=== PATIENT | female | born 1940 | race Caucasian/White ===

== ENCOUNTER → 2019-01-19 09:34 | Outpatient (CLI) | payer OTHER, SELFPAY ==
[2019-01-19 09:52] LABS: RBC Urine None Seen (0-5/HPF)
[2019-01-19 11:09] LABS: Add Manual Diff / Slide Review NO; Basophils Absolute Auto 100 /uL (0-100); Basophils Percent Auto 0.9 % (0-2); Eosinophils Absolute Auto 400 /uL (0-450); Eosinophils Percent Auto 5.7 % (2-4); Hematocrit 38.3 % (36-46); Hemoglobin 13.4 g/dL (12.0-16.0); Lymphocytes Absolute Auto 1800 /uL (1100-4500); Lymphocytes Percent Auto 25.7 % (25-40); Mean Corpuscular Hemoglobin 30.9 PG (26-34); Mean Corpuscular Volume 88.4 fL (80-100); Monocytes Absolute Auto 800 /uL (0-900); Monocytes Percent Auto 11.2 % (3-14); Neutrophils Absolute Auto 4000 /uL (1500-7000); Neutrophils Percent Auto 56.5 % (50-75); Platelet Count 264 X10^3/uL (150-400); Red Blood Cell Count 4.33 X10^6/uL (4.0-5.2); Red Cell Distribution Width 13.7 % (11.6-14.8); White Blood Cell Count 7.2 X10^3/uL (4.5-11.0)
[2019-01-19 11:44] LABS: BUN Creatinine Ratio 17.8 (6-22); Blood Urea Nitrogen 16 mg/dL (7-17); Calcium 10.2 mg/dL (8.4-10.2); Carbon Dioxide 29 mmol/L (22-32); Chloride 105 mmol/L (98-107); Estimated Glomerular Filt Rate > 60.0 mL/min (>60); Glucose 77 mg/dL (80-110); HEMOLYSIS < 15 (0-50); Sodium 141 mmol/L (137-145)
[2019-01-19 11:45] LABS: Potassium 5.4 mmol/L (3.4-5.1)
[2019-01-19 12:00] LABS: Appearance Urine UA CLEAR; Bilirubin Urine UA NEGATIVE (NEGATIVE); Color Urine UA YELLOW; Glucose Urine UA NEGATIVE (Negative); Ketones Urine UA NEGATIVE (NEGATIVE); Leukocyte Esterase Urine UA 2+ (NEGATIVE); Nitrite Urine UA NEGATIVE (Negative); Occult Blood Urine UA NEGATIVE (Negative); Protein Urine UA NEGATIVE (Negative); Specific Gravity Urine UA <=1.005 (1.000-1.035); Urobilinogen Urine UA 0.2 E.U./dL (0.2)
[2019-01-19 12:24] LABS: Bacteria Urine Few (2-10); Culture Indicated Urine Specimen Cultured; Squamous Epithelial Cell Urine 1-5 /HPF (0-5/HPF); WBC Urine 1-5/HPF (0-5/HPF); pH Urine UA 6.5 (4.5-8.0)
[2019-01-19 14:50] LABS: Hemoglobin A1C% w Est Avg Glu 5.5 % (4.0-6.0)
== END ==
PROVIDERS: Visit Provider Orthopaedic Surgery
DX: Z01.818 Encounter for other preprocedural examination (principal); Z01.812 Encounter for preprocedural laboratory examination; R73.9 Hyperglycemia, unspecified; N39.0 Urinary tract infection, site not specified
CPT/HCPCS: 36415; 80048; 81001; 83036; 85025; 87086; 93005

== ENCOUNTER 2019-03-08 05:58 | Inpatient (IN) | payer OTHER, SELFPAY ==
[2019-02-28 12:39] VITALS: BMI 24.0
[2019-03-08] VITALS (15 sets, daily range): BP systolic 114–146; BP diastolic 51–99; PULSE 66–81; RESP 11–18; TEMP 36.1–37.2; O2SAT 96–99; BMI 24.0
--- NOTE | 2019-03-08 | DI.RAD.S_ITS ---
PROCEDURE: [id number] W PEL IF PERFORMED INDICATIONS: ANTERIOR HIP ARTHROPLASTY TECHNIQUE: 4 intraoperative fluoroscopic images of left hip(s). COMPARISON: None. FINDINGS: Intraoperative fluoroscopic images of left hip shows left total hip arthroplasty. Alignment of left hip is anatomic. IMPRESSION: Fluoroscopy guidance was provided intraoperatively for left total hip arthroplasty. Dictated by: Derik Snowden M.D. on 03/08/2019 at 11:43 Approved by: Derik Snowden M.D. on 03/08/2019 at 11:47
--- NOTE | 2019-03-08 06:00 | DI.RAD.S_ITS ---
PROCEDURE: XR HIP W PEL IF DONE LT 2V INDICATIONS: MICHELE TECHNIQUE: AP pelvis and lateral view of the left hip acquired. COMPARISON: [facility], CR, [id number] W PEL IF PERFORMED, 03/08/2019, 9:57. FINDINGS: Bones: Patient is status post left hip arthroplasty, with hardware components in expected positions. The hip joint appears congruent. The visualized bony structures appear intact. Soft tissues: Overlying postoperative changes are noted. No suspicious soft tissue densities. IMPRESSION: Post left total hip arthroplasty changes with anatomic left hip alignment. Dictated by: Derik Snowden M.D. on 03/08/2019 at 11:42 Approved by: Derik Snowden M.D. on 03/08/2019 at 11:43
[2019-03-08] MEDS: LACTATED RINGERS 1,000 ML 42 ML IV ×2 (06:40→09:01)
[2019-03-08] MEDS: ACETAMINOPHEN 325 MG TABLET 975 MG PO (06:51)
[2019-03-08] MEDS: PREGABALIN 75 MG CAPSULE PO (06:51)
[2019-03-08] MEDS: CELECOXIB 200 MG CAPSULE PO (06:51)
[2019-03-08] MEDS: VANCOMYCIN 1,000 MG/200 ML PIGGYBACK 200 MG IV (06:54)
--- NOTE | 2019-03-08 07:51 | PM.PREOP ---
Pre-operative Note Interval Note History & Physical reviewed/Exam performed by Physician: Yes Changes to H&P: No
--- NOTE | 2019-03-08 07:51 | PM.OP.1 ---
Operative Date/Time/Diagnoses Date of procedure: 03/08/19 Time of procedure: 07:57 Pre-op diagnosis: left hip OA Post-op diagnosis: same Procedure & Clinicians Procedure: left hip total hip Same procedure as scheduled: Yes Indications: The patient has had progressively worsening left hip pain with radiographic changes consistent with arthritis. Non-operative management has failed and the patient has requested total hip replacement. The risks, benefits and alternatives to surgery were discussed with the patient prior to proceeding. Risks discussed included, but were not limited to, failure to relieve pain, leg length discrepancy, dislocation, stiffness, infection, nerve damage, deep venous thrombosis, pulmonary embolism, stroke, coma, heart attack, permanent paralysis and , as well as the potential need for eventual revision of the prosthetic. Surgeon: Ramona Vargas Clinical Investigator: Juliano Andrea Anesthesia Type: General and Spinal Operative Notes Findings: Severe left hip arthritis, good stability Closure Type: primary Specimen(s): none sent Prosthetic devices, grafts, tissues, transplants, or devices: vargas and nephew size 54 cup, 54 x 36 neutral liner, size 5 standard offset anthology stem, 36 by +0 femoral head Oxinium Estimated Blood Loss (mL): 250 Blood products transfused: none Procedure in detail: The patient was brought to the operating room. Patient was carefully positioned in the supine position. Time-out was performed and antibiotics were given. Anesthesia was induced. She was positioned in the on the table in order to allow hyperextension of the hip. The left lower extremity was prepped and draped in a standard sterile fashion. An anterior left hip incision was made 1 fingerbreadth lateral to the anterior superior iliac spine and extended distally towards the greater trochanter. Dissection was carried out through skin and subcutaneous tissues. The skin and subcutaneous tissues were carefully injected with Lidocaine with epi. Superficial hemostasis was achieved. The fascia over the tensor fascia rakesh was defined and incised with a knife. Two Allis clamps were used to grasp the fascia. Tensor fascia rakesh was retracted laterally. A gelpi retractor was placed. Dissection was carried out down along the neck. The circumflex vessels were carefully identified and cauterized with the Aqua Mantis. There was good visualization of the femoral neck. A Cobra was placed superior to the neck and the gluteus fibers were carefully stripped from that superior aspect of the capsule. A 2nd retractor was placed along the inferior aspect of the neck. The rectus insertion along the capsule was partially released. A 3rd retractor that was then gently placed over the rim of the acetabulum under the rectus. Capsule was carefully incised and released from the intertrochanteric line circumferentially superior to the mid sagittal line and inferiorly to the mid sagittal line until the lesser trochanter was palpable. A tag stitch was placed both in the superior and inferior limb of the capsular insertion. Along the acetabulum capsule was also released up to the mid sagittal 12:00 position. A portion of the labrum was resected. A saw was used to perform an osteotomy at the level of the intertrochanteric line and the junction of the superior femoral neck leaving approximately 1 finger breath of residual inferior neck above the lesser trochanter. A 2nd cut was made along the femoral neck at the base of the head and a napkin ring of neck was removed. Corkscrew was placed in the femoral head and the head was removed without difficulty. Retractors were then repositioned around the acetabulum. Residual labrum was resected and additional osteophytes were removed. A reamer that was 4 mm below the templated size was placed by hand in the acetabulum and it was reamed to centralize the acetabulum. It was then reamed up to 2 under the templated size and fluoroscopy was brought in to confirm the position of the reaming and depth of reaming. I reamed 1 under the anticipated size and touched the rim with line to line reaming. A trial cup was placed and noted that it was appropriately sized and fluoroscopy confirmed position and depth. The component was open and inserted without difficulty fluoroscopic imaging was used to confirm that the cup had been adequately seated and was well positioned. Neutral poly liner was placed. The cup was tested and noted to be stable. Attention was then directed to the femur. The femur was gently hyperextended additional capsular release was performed as needed in order to allow adequate visualization of the proximal femur with elevation of the femur. Patient was placed in a hyperextended slightly adducted position with maximum external rotation. Box osteotome was used to check for any residual neck as well as sclerotic bone along the trochanter. [place] pepper was placed in the femur. Additional broaching was performed. Canal finder was used to determine the alignment of the canal and position. Size 1 broach was placed. The canal was then appropriately broached up to the templated size as long as there was adequate stability of the broach and serial advancement of the broach without excessive impingement. Specific attention was directed at avoiding varus attempting to direct the distal aspect of the broach more anteriorly and avoiding excessive anteversion. Trial reduction showed acceptable range of motion, good stability, no posterior impingement, taoist of leg length and appropriate lateral shuck. I also hyperflexed the hip and checked that there was no impingement anteriorly and there was good stability with flexion, adduction and internal rotation. Marcaine and Exparel were injected. The stem was placed without difficulty. Repeat trial reduction and x-ray showed acceptable overall position, length, and no evidence of the femoral fracture. Final head was placed. Wound was meticulously irrigated with normal saline. The hip was reduced and additional Exparel and Marcaine were injected. The capsule was closed with interrupted nonabsorbable sutures. The fascia of the tensor was closed with interrupted and running Vicryl. No drain was placed. Any tensor fascia rakesh muscle that appeared to be contused or injured which was a minimal amount was carefully resected. Capsule around the tensor was injected with Exparel and Marcaine. The skin was closed with barbed stitches for the subcutaneous tissue and skin. We also used surgical glue. The wound was dressed sterilely. Brief Betadine soak was also used and was meticulously irrigated with normal saline. Patient was transferred to recovery room in satisfactory condition. Complications: none Post-operative Condition: stable Disposition: Acute Care Plan for aftercare: The patient will be maintained on a standard total hip replacement protocol with weight bearing as tolerated and anterior hip precautions. The patient will receive Aspirin and sequential compression devices for DVT prophylaxis. The patient will be discharged home when safe for the home environment.
[2019-03-08] MEDS: CEFAZOLIN 2 GM/100 ML FROZ.PIGGY IV ×2 (08:05→17:47)
[2019-03-08] MEDS: BUPIVACAINE LIPOSOME 266 MG/20 ML VIAL INJ (08:50)
[2019-03-08] MEDS: BUPIVACAINE 0.25% W/ EPI (PF) 10 ML VIAL 60 ML INJ (08:51)
[2019-03-08] MEDS: TRANEXAMIC ACID 1,000 MG VIAL 2000 MG INJ ×2 (08:52→10:19)
[2019-03-08] MEDS: SODIUM CHLORIDE IRRIG SOLUTION 250 ML, POVIDONE-IODINE SPONGE STICKS 1 APPLIC IRR (09:02)
--- NOTE | 2019-03-08 11:40 | SUR.PHASEI ---
Assumed care from Lorraine, report called to Chey pt stable pacu stay. transported up on room air with belongings to room 207
--- NOTE | 2019-03-08 11:55 | SUR.PHASEI ---
Patient taken up to room in bed with all belongings. Patient left with receiving nurse at bedside in stable condition.
[2019-03-08] MEDS: LACTATED RINGERS 1,000 ML 125 ML IV ×2 (12:00→20:39)
--- NOTE | 2019-03-08 12:36 | SUR.OPER ---
Supine on padded [place] table with bilateral legs secured in padded positioning boots and suspended in positioning spars, operative leg in traction per surgeon. Head on one pillow. Arm on non-operative side secured on padded armboard <90 degrees abduction. Arm on operative side padded and resting across chest then secured with tape over sheet. Padded perineal post in place per surgeon.
--- NOTE | 2019-03-08 13:03 | CM.DANOTE ---
Discharge Planning/Care Management DCP: assessment: initiate. Case received, EMR reviewed and went to room to check in on pt. She is still in surgery. Pt is a 78 year old female who admitted this morning for a planned L hip surgery. Surgeon: Dr. Estephania Byrne PCP: listed as Luis Osorio Payer: [facility]. PT will be seeing pt after surgery, either late this afternoon or tomorrow, whenever pt stable for same. P: DCP team will follow up tomorrow for introduction of DCP role and discussion of d/c issues and options. CM Discharge Assessment Start: 03/08/19 13:01 Freq: Status: Active Protocol: Document 03/08/19 13:02 ITV (Rec: 03/08/19 13:02 ITV [id number]) Discharge Planning Assessment Advance Directives? Yes Advance Directives on File No History Provided By Medical Record Prior Living Arrangements House Household Members spouse Review Status In Process Pre-Anesthesia Assessment Start: 02/28/19 12:39 Freq: Status: Active Protocol: Document 02/28/19 12:39 CAB (Rec: 02/28/19 13:28 CAB [id number]) Pre-Anesthesia Assessment Patient Information Reviewed Via Phone Assessment Assessment Completed With Patient Diagnostic Results BMP/CMP,CBC,EKG,Urinalysis Comment Labs/EKG @ 01/19/19 Primary Care Provider Luis Osorio Seen Specialist in Last 12 Months Yes Specialist Seen Orthopedist Primary Language Malaysian Fagoter Required No Height 162.56 cm Weight 63.503 kg Body Mass Index (BMI) 24.0 Hearing Ability Normal Visual Assist Glasses Dentition Type Teeth, Natural Present,Dental Implants Barriers to Learning None Other Aids No Hx Anesthesia Reactions Yes: PONV s/p hysterectomy only Hx Family Anesthesia Reaction No Hx Malignant Hyperthermia No Hx Blood Transfusions No Anesthesia Review Requested No alcohol intake current alcohol intake frequency holidays/special occasions only Smoking Status Never smoker Substance Use Type does not use Pain Present Pain Reported Musculoskeletal Symptoms Abnormal Gait,Back Pain, Difficulty Walking,Joint Pain History of Falling (Recent or History of No ) Patient is completely paralyzed or No completely immobile Mental Status Oriented to own ability Is patient on oxygen? No Does patient have ARTHUR/SOB No Hx Sleep Apnea No Currently Taking a Beta Lm No Can You Climb a Flight of Stairs Without Yes SOB Hx Chest Pain No Hx SOB No Hx Syncope or Dizziness No Anti-Coagulant Therapy No Has a Hydraulic Specialist No Cardiac Testing No Hx Pacemaker/ICD No Pacemaker Rep Required? No Cardiac Clearance Received Not Applicable Diet Type At Home Regular dysphagia No Bladder Pattern Incontinent Urinary Catheter Present No Hx Urinary Self Catheterization No Comment Very mild incontinence, wears a pad Diabetes No HgbA1C 5.5 Date 01/19/19 Patient No Lactating No Hx Drug Resistant Organism No Presence of External or Internal Medical Yes: Bilat eye lens, right hip Devices prosthesis, right great toe hardware Have you traveled outside the [facility] in the last 30 days? Marital Status Lives With spouse Prior Living Arrangements House Number of Floors (Floors) Two Floors Support System Spouse Does the Patient Have Assistance After Yes Surgery Patient Discharge Plan Description Return Home Comment Pt advised 1 day length of stay per surgeon Feels Safe in Current Environment Yes Been Physically Hurt or Threatened By a No Person in Current Environment Do you have thoughts of harming yourself None or others? Are you currently considering suicide? No Do you have a plan to hurt yourself or No Plan others? Do You Have Any Spiritual Beliefs That No May Affect Your HC Choices? Do You Have Any Cultural Practices That No May Affect Your HC Choices? Comment Confucianist Who Can We Speak to About Patient's Care Family, friends Identifying Code for Release of Patient Declines to issue Information Health Care Proxy/Next of Kin Quan Gooden () Health Care Proxy Emergency Contact Name Quan Gooden () Emergency Contact Advance Directives? Yes Advance Directives on File No Requested Patient Bring Advanced Yes Directives DOS Power of Asphalt Surface Heater Operator No PAC Instructions Do not shave/clip surgical site,Durable medical equipment ,Medications to take/avoid, Nasal antibiotic,No ETOH/ petroleum product on skin DOS, NPO,Post-op transportation,Pre -surgical wash,Sturdy shoes/ comfortable clothes,Do not bring valuables and remove jewelry
[2019-03-08] MEDS: IBUPROFEN 400 MG TABLET PO ×3 (13:20→20:33)
[2019-03-08] MEDS: ACETAMINOPHEN 325 MG TABLET 650 MG PO ×2 (13:21→20:33)
--- NOTE | 2019-03-08 15:12 | PT.IIE ---
Current Diagnoses Unilateral primary osteoarthritis, left hip (03/08/19) Surgery Performed Operation Date: 03/08/19 07:45 Actual Procedures p Total Hip Arthroplasty/Anterior Approach(Left) - Ramona Byrne MD Surgical History (Last Updated 02/28/19 @ 13:17 by Zaynab Urban RN) H/O: hysterectomy (Acute ~2012) History of arthroplasty of right hip (Acute ~04/2013) History of bunionectomy of both great toes (Acute) History of tonsillectomy and adenoidectomy (Acute) Hx of appendectomy (Acute ~1952) Hx of bilateral cataract extraction (Acute) Hx of cholecystectomy (Acute ~2016) Medical History (Last Updated 02/28/19 @ 13:19 by Zaynab Urban RN) Heartburn (Acute) Hiatal hernia (Acute) History of anemia as a child (Acute) HTN (hypertension) (Acute) Hypothyroidism (Acute) Ocular migraine (Acute) Osteoarthritis (Acute) Pleurisy (Acute) Stomach ulcer (Acute) Physical Therapy Inpatient Evaluation/Re-Eval M1 PT/OT-IP Prior Functional Status Start: 03/08/19 16:21 Freq: NEEDED Status: Active Protocol: Document 03/08/19 15:12 AB (Rec: 03/08/19 16:45 AB [id number]) Medical Review Prior Functional Status Medical History Reviewed Yes Communication able to make needs known Mobility and Gait pt stated that she is independent with all mobilities and ambulation without AD Social History Household Members spouse Living Arrangements House Number of Floors (Floors) Two Floors Number of Stairs To Enter/Railing? has 3 steps to enter without rails has 17 to bedroom level with R rail ascending but pt plans to stay on the main level of the house Home Environment Standard Height Toilet,Walk in Shower Home Equipment Front Wheel Walker,Straight Cane,Raised Toilet Seat w/ Armrests Employment Status Retired M2 PT-IP Current Condition Start: 03/08/19 16:21 Freq: NEEDED Status: Active Protocol: Document 03/08/19 15:12 AB (Rec: 03/08/19 16:45 AB [id number]) Physical Therapy Current Condition Current Condition Evaluation Date 03/08/19 Treatment Diagnosis s/p L MICHELE anterior approach; difficulty in walking Onset Date 03/08/19 Precautions Anterior Hip Precautions No Hip Extension,No Hip External Rotation Weight Bearing Status Weight Bearing Status Weight Bear as Tolerated M3 PT-IP Subjective Start: 03/08/19 16:21 Freq: NEEDED Status: Active Protocol: Document 03/08/19 15:12 AB (Rec: 03/08/19 16:45 AB [id number]) Subjective Physical Therapy Visit Type Type Initial Evaluation Visit Start Time 15:12 Visit Stop Time 15:39 Total Visit Minutes 27 Number of [place] PANEL JOINER Visits 0 Physical Therapy Visit Comments Patient Comments pt agreeable to do PT Therapy Pain Assessment Pain Present Pain Present Pain Reported Location Abdomen Scale Used pain scale not stated M4 PT-IP Mobility and Gait Start: 03/08/19 16:21 Freq: NEEDED Status: Active Protocol: Document 03/08/19 15:12 AB (Rec: 03/08/19 16:45 AB [id number]) PT-Bed Mobility Assessment Supine to Sit Supine to Sit Standby Assistance Sit to Supine Sit to Supine Standby Assistance Scooting Scooting to Edge of Bed Standby Assistance PT-Transfer Assessment Sit to and From Stand Sit to and from Stand Contact Guard Assistance,1 Person Assistance,Use of Upper Extremities Equipment Transfer Assistive Device Gait Belt,Front Wheeled Walker Orthotic/Prosthetic Devices or Brace: No Transfers Transfer Destination Bed Transfer Technique Stand Step Pivot Transfer Ability Level of Assist Contact Guard Assistance,1 Person Assistance,Use of Upper Extremities Comments Mobility Comments pt found sitting on bedside commode. completed sit to stand CGA and pt was able to maintain standing while assisted with brief management . pt completed step transfer using FWW to the bed CGA. pt agreed to ambulate in room and completed. Assessed bed mobility supine<> sit SBA and pt requested to stay in bed afterwards. positioned in bed. call light and table placed within reach . Gait Assessment Gait Gait Assistance Required: Contact Guard Assist Distance (Feet) 40 Able to Maintain Weight Bearing Status Yes During Gait Assistive Devices Assistive Device Gait Belt,Front Wheeled Walker Orthotic/Prosthetic Devices or Brace: No Gait Deviations General Gait Pattern Antalgic,Decreased Stride Length,Decreased Feet Clearance Factors Limiting Gait Function Factors Limiting Gait Function Decreased Activity Tolerance, Decreased Strength,Limited Range of Motion,Pain,Poor Balance PT-Balance Assessment Sitting Balance and Reactions Static Sitting Balance Ability Good Dynamic Sitting Balance Ability Good Standing Balance and Reactions Static Standing Balance Ability Fair Dynamic Standing Balance Ability Fair Device Used FWW M5 PT-IP Objective Assessments Start: 03/08/19 16:21 Freq: NEEDED Status: Active Protocol: Document 03/08/19 15:12 AB (Rec: 03/08/19 16:45 AB [id number]) Orientation Orientation/Cognition Level of Alertness Alert Orientation Name,Age,Birthday,Place, Situation Language Function Ability No Deficits Noted Safety Awareness Understands Safety Issues Gross Range of Motion Lower Extremity ROM Assessment Within Functional Limits Strength Lower Extremity Strength Assessment Left Impaired Hip 3+/5 Knee 4-/5 Coordination Assessment Gross Coordination Gross Coordination WNL Sensation Assessment Sensation Gross Sensation WNL Muscle Tone Muscle Tone WNL Yes M6 PT-IP Treatment Start: 03/08/19 16:21 Freq: NEEDED Status: Active Protocol: Document 03/08/19 15:12 AB (Rec: 03/08/19 16:45 AB [id number]) Physical Therapy Treatment Education Education Provided Precautions,Weight Bearing Status,Post-Op Packet,Safety M7 PT-IP Assessment and Plan Start: 03/08/19 16:21 Freq: NEEDED Status: Active Protocol: Document 03/08/19 15:12 AB (Rec: 03/08/19 16:45 AB [id number]) PT Summary Assessment and Plan Potential Rehabilitation Potential Good Status of Condition at Evaluation Stable Summary Impairments Pain,ROM,Strength,Balance, Coordination,Sensation,Tone, Cognition,Bed Mobility, Transfers,Gait,Activity Tolerance Assessment Summary pt requiring CGA with mobility . pt plans to go home and spouse to assist her. will conduct caregiver training when appropriate and stair climbing will be completed prior to d/c. Goals Bed Mobility Goal Independent Transfer Goal Independent,Front Wheeled Walker Gait Goal Independent,Front Wheel Walker Gait Distance 150 Other Goals up/down 3 steps using SPC/NIGHT SHIFT MANAGER CGA Days to Meet Goals 3 Frequency of Treatment Frequency Of Treatment Twice a Day Treatment Plan Physical Therapy Treatment Plan Bed Mobility Training,Transfer Training,Gait Training, Therapeutic Exercise,Balance Retraining,Post Op Education, Discharge Planning,Hot or Cold Pack,Neuromuscular Re-ed, Coordination Retraining,Manual Therapy Other Recommendations and Next Treatment ambulation, caregiver training Focus , stair climbing Recommendations To Nursing Amount of Assist Needed 1 Person Assist Discharge Recommendations PT Discharge Recommendations Home with Assistance, Outpatient PT
--- NOTE | 2019-03-08 16:25 | PC.NURSE ---
Post-op: Late entry- Arrived to room 207 at 1155, wide awake and alert, oriented X3. Able to wiggle toes and move BLE's. Reports BLE's still feeling dull, but sensation continues to return. Feet warm, pink, PP+. Dressing to anterior L hip C/D/I. Rated L hip pain 4/10 at the most and was medicated with Tylenol and Ibuprofen for the same. Denied N/V and has been tolerating PO's without issue. BT+, hypoactive. Flatus+. Lungs CTA. HRR. SCD's to BLE's. IVF per orders, site in R FA WNL. Oriented to room and call light and encouraged to make needs known. Call light within reach, bed alarm active.
[2019-03-08] MEDS: ASPIRIN EC 81 MG TABLET PO (20:33)
[2019-03-08] MEDS: DOCUSATE 100 MG CAPSULE PO (20:33)
[2019-03-09] MEDS: CEFAZOLIN 2 GM/100 ML FROZ.PIGGY IV (00:23)
[2019-03-09] MEDS: IBUPROFEN 400 MG TABLET PO ×3 (00:23→08:56)
[2019-03-09 00:35] VITALS: BP 123/60; PULSE 66; RESP 16; TEMP 36.8; O2SAT 96
[2019-03-09 04:40] VITALS: BP 125/61; PULSE 66; RESP 18; TEMP 36.6; O2SAT 97
[2019-03-09] MEDS: PANTOPRAZOLE 20 MG TABLET PO (06:16)
[2019-03-09 07:11] LABS: Hematocrit 31.4 % (36-46); Hemoglobin 10.5 g/dL (12.0-16.0)
--- NOTE | 2019-03-09 07:48 | PM.PNPO.1 ---
Subjective Subjective Date Patient Seen: 03/09/19 Time Patient Seen: 07:48 Interval history: Postop day 1 status post total hip arthroplasty anterior approach with Dr. Byrne. Patient's pain is well controlled with ibuprofen. She is mobilized with physical therapy yesterday. She is eager to go home this morning. Exam Vital Signs (past 8 hours): - 03/09/19 00:35 03/09/19 04:40 Temperature 98.2 F 97.9 F Pulse Rate 66 66 Respiratory Rate 16 18 Blood Pressure 123/60 125/61 Pulse Oximetry 96 97 Oxygen Delivery Method Room Air Oxygen Flow Rate 0 Narrative Exam Narrative: Patient is sitting up in bed in no acute distress. She is alert and oriented x3. Calves are soft, compressible, and nontender bilaterally. She is able actively dorsiflex and plantar flex. Pulses are symmetrical. Anterior dressing is CDI. Objective Labs Result Diagrams: 03/09/19 06:45 Labs: Laboratory Results - last 24 hr 03/09/19 06:45 Hgb 10.5 L Hct 31.4 L Assessment & Plan Post-op Postoperative Procedures: Procedures Operation Date: 03/08/19 07:45 Actual Procedures Side Surgeon p Total Hip Arthroplasty/Anterior Approach Left Ramona Byrne MD Patient will continue to mobilize with physical therapy today. Anterior hip precautions. ASA for DVT prophylaxis. Continue current pain control. She will discharge home today. Quality VTE Deep Vein Thrombosis/Pulmonary Embolism Present on Admission: No
[2019-03-09] MEDS: DOCUSATE 100 MG CAPSULE PO (08:56)
[2019-03-09] MEDS: TRIAMTERENE/HCTZ 37.5/25 TABLET 0.5 CAP PO (08:56)
[2019-03-09] MEDS: ASPIRIN EC 81 MG TABLET PO (08:57)
[2019-03-09] MEDS: LEVOTHYROXINE 50 MCG TABLET PO (08:57)
[2019-03-09] MEDS: ACETAMINOPHEN 325 MG TABLET 650 MG PO (08:57)
[2019-03-09 09:05] VITALS: BP 123/64; PULSE 66; RESP 16; TEMP 36.1; O2SAT 98
--- NOTE | 2019-03-09 09:19 | PT.IPTN ---
Current Diagnoses Unilateral primary osteoarthritis, left hip (03/08/19) Surgery Performed Operation Date: 03/08/19 07:45 Actual Procedures p Total Hip Arthroplasty/Anterior Approach(Left) - Ramona Byrne MD Physical Therapy Treatment Note M2 PT-IP Current Condition Start: 03/08/19 16:21 Freq: NEEDED Status: Active Protocol: Document 03/08/19 15:12 AB (Rec: 03/08/19 16:45 AB [id number]) Physical Therapy Current Condition Current Condition Evaluation Date 03/08/19 Treatment Diagnosis s/p L MICHELE anterior approach; difficulty in walking Onset Date 03/08/19 Precautions Anterior Hip Precautions No Hip Extension,No Hip External Rotation Weight Bearing Status Weight Bearing Status Weight Bear as Tolerated M3 PT-IP Subjective Start: 03/08/19 16:21 Freq: NEEDED Status: Active Protocol: Document 03/09/19 09:19 AB (Rec: 03/09/19 11:29 AB [id number]) Subjective Physical Therapy Visit Type Type Treatment Note Visit Start Time 09:19 Visit Stop Time 09:49 Total Visit Minutes 30 Number of [place] [employer] Visits 0 Physical Therapy Visit Comments Patient Comments pt agreeable to do PT Therapy Pain Assessment Pain When Pain Assessed At Rest Pain Present Pain Present Pain Reported Location Abdomen Intensity 2 Scale Used Numeric (1 - 10) Pain Management Techniques Apply Cold,Re-positioning, Timing of Activity with Medications M4 PT-IP Mobility and Gait Start: 03/08/19 16:21 Freq: NEEDED Status: Active Protocol: Document 03/09/19 09:19 AB (Rec: 03/09/19 11:29 AB [id number]) PT-Bed Mobility Assessment Supine to Sit Supine to Sit Standby Assistance Sit to Supine Sit to Supine Standby Assistance Scooting Scooting to Edge of Bed Standby Assistance Scooting Up and Down in Bed Standby Assistance PT-Transfer Assessment Sit to and From Stand Sit to and from Stand Standby Assistance,1 Person Assistance,Use of Upper Extremities Equipment Transfer Assistive Device Gait Belt,Front Wheeled Walker Transfers Transfer Destination Toilet Transfer Technique ambulated using FWW Transfer Ability Level of Assist Standby Assistance Gait Assessment Gait Gait Assistance Required: Standby Assistance Distance (Feet) 150 Able to Maintain Weight Bearing Status Yes During Gait Assistive Devices Assistive Device Gait Belt,Front Wheeled Walker Orthotic/Prosthetic Devices or Brace: No Gait Deviations General Gait Pattern Antalgic Factors Limiting Gait Function Factors Limiting Gait Function Decreased Activity Tolerance, Decreased Strength,Pain,Poor Balance Stair Climbing Assessment Evaluation Level of Assist On Stairs Contact Guard Assistance,1 Person Assistance Devices Stair Climbing Assistive Devices Right Railing Technique/Endurance Stair Climbing Direction Ascend and Descend Stair Climbing Technique Step to Step Number of Steps Climbed 3 Stair Climbing Set # Repetitions (reps) 1 Comments Stair Climbing Comments pt stated that she can walk to the front door instead of using the enttrance from the garage since front door has 3 steps to enter but with R rail ascending compared to the one from the garage without rails to use. M5 PT-IP Objective Assessments Start: 03/08/19 16:21 Freq: NEEDED Status: Active Protocol: Document 03/08/19 15:12 AB (Rec: 03/08/19 16:45 AB [id number]) Orientation Orientation/Cognition Level of Alertness Alert Orientation Name,Age,Birthday,Place, Situation Language Function Ability No Deficits Noted Safety Awareness Understands Safety Issues Gross Range of Motion Lower Extremity ROM Assessment Within Functional Limits Strength Lower Extremity Strength Assessment Left Impaired Hip 3+/5 Knee 4-/5 Coordination Assessment Gross Coordination Gross Coordination WNL Sensation Assessment Sensation Gross Sensation WNL Muscle Tone Muscle Tone WNL Yes M6 PT-IP Treatment Start: 03/08/19 16:21 Freq: NEEDED Status: Active Protocol: Document 03/09/19 09:19 AB (Rec: 03/09/19 11:29 AB [id number]) Physical Therapy Treatment Exercises Exercises Heel Slides Education Education Provided Precautions,Weight Bearing Status,Safety M7 PT-IP Assessment and Plan Start: 03/08/19 16:21 Freq: NEEDED Status: Active Protocol: Document 03/09/19 09:19 AB (Rec: 03/09/19 11:29 AB [id number]) PT Summary Assessment and Plan Potential Rehabilitation Potential Good Summary Impairments Pain,ROM,Strength,Balance, Coordination,Sensation,Tone, Cognition,Bed Mobility, Transfers,Gait,Activity Tolerance Progress Towards Goals Progressing Toward Goals Assessment Summary pt progressing well with mobility and requires SBA with ambulation and CGA with stair climbing. pt plans to go home with spouse to assist her . pt may go home when medically stable. Goals Bed Mobility Goal Independent Transfer Goal Independent,Front Wheeled Walker Gait Goal Independent,Front Wheel Walker Gait Distance 150 Other Goals up/down 3 steps using SPC/INVESTIGATIVE WRITER CGA Days to Meet Goals 3 Frequency of Treatment Frequency Of Treatment Twice a Day Treatment Plan Physical Therapy Treatment Plan Bed Mobility Training,Transfer Training,Gait Training, Therapeutic Exercise,Balance Retraining,Post Op Education, Discharge Planning,Hot or Cold Pack,Neuromuscular Re-ed, Coordination Retraining,Manual Therapy Other Recommendations and Next Treatment ambulation, caregiver training Focus , stair climbing Recommendations To Nursing Amount of Assist Needed 1 Person Assist Discharge Recommendations PT Discharge Recommendations Home with Assistance, Outpatient PT
== END 2019-03-09 12:20 | disposition home or self-care (01) | DRG 470 ==
PROVIDERS: Admitting Provider Orthopaedic Surgery; Visit Provider Orthopaedic Surgery
PROC: 0SRB02Z Replacement of Left Hip Joint with Metal on Polyethylene Synthetic Substitute, Open Approach (ICD-10-PCS; CPT 27130; principal; 2019-03-08 07:45)
DX: M16.12 Unilateral primary osteoarthritis, left hip (principal); M48.062 Spinal stenosis, lumbar region with neurogenic claudication; M41.86 Other forms of scoliosis, lumbar region; I10 Essential (primary) hypertension; K21.9 Gastro-esophageal reflux disease without esophagitis; E03.9 Hypothyroidism, unspecified
CPT/HCPCS: 36415; 73502; 73503; 76000; 85014; 85018; 97116; 97161; C1776; C9290; J0690; J1100; J2274; J2405; J2704